=== PATIENT | female | born 1995 | race Caucasian/White ===

== ENCOUNTER 2017-01-23 06:21 | Inpatient (IN) | payer BC ==
[~2017-01-23] VITALS: Ht 162.6 cm; Wt 65.4 kg
[~2017-01-23 06:21] MED LIST: AZIT-21 PO; BIRTHCONTROL PO; CEFD300C3 PO; FLC1T PO; HYDR200T46 PO; MTX2.5T PO; NAPR-243 PO
[2017-01-23] MEDS ORDERED: SULF-222 PO (06:39)
[2017-01-23] MEDS ORDERED: [UNRECOGNIZED DRUG - CODE] (06:39)
[2017-01-23] MEDS ORDERED: SPIR50TA2 PO (06:39)
[2017-01-23] MEDS ORDERED: METH2.5T PO (06:39)
[2017-01-23] MEDS ORDERED: fentaNYL INJECTION 100 MCG/2 ML AMP IVP ONE (07:00)
[2017-01-23] MEDS ORDERED: NS IV 1000 ML 1,000 ML IV SCH ×3 (07:00→08:45)
[2017-01-23] MEDS ORDERED: cefTRIAXone INJECTION 2,000 MG in NS (IVPB) 50 ML IV ONE (07:00)
[2017-01-23] MEDS ORDERED: ONDANSETRON 4 MG/2 ML (SDV) Z0FRAN IVP ONE (07:00)
[2017-01-23 07:02] LABS: BASOPHILS % (AUTO) 0 % (0-10); EOSINOPHILS % (AUTO) 0 % (0-10); LYMPHOCYTES # (AUTO) 1.4 X 10^3 (1.0-4.0); LYMPHOCYTES % (AUTO) 7 % (12-44); MEAN CORPUSCULAR HEMOGLOBIN 31 PG (25-34); MEAN CORPUSCULAR HGB CONC 34 G/DL (32-36); MEAN CORPUSCULAR VOLUME 93 FL (80-99); MEAN PLATELET VOLUME 9.3 FL (7.4-10.4); MONOCYTES # (AUTO) 0.6 X 10^3 (0.0-1.0); MONOCYTES % (AUTO) 3 % (0-12); NEUTROPHILS # (AUTO) 17.2 X 10^3 (1.8-7.8); NEUTROPHILS % (AUTO) 89 % (42-75); PLATELET COUNT 254 10^3/uL (130-400); RED BLOOD COUNT 4.05 10^6/uL (4.35-5.85); RED CELL DISTRIBUTION WIDTH 12.8 % (10.0-14.5); WHITE BLOOD COUNT 19.2 10^3/uL (4.3-11.0)
[2017-01-23 07:12] LABS: ALANINE AMINOTRANSFERASE 12 U/L (0-55); ALBUMIN 4.2 G/DL (3.2-4.5); ANION GAP 9 MMOL/L (5-14); ASPARTATE AMINO TRANSFERASE 13 U/L (5-34); BILIRUBIN,TOTAL 0.4 MG/DL (0.1-1.0); BLOOD UREA NITROGEN 12 MG/DL (7-18); BUN/CREATININE RATIO 11; CALCIUM 9.1 MG/DL (8.5-10.1); CARBON DIOXIDE 27 MMOL/L (21-32); CHLORIDE 101 MMOL/L (98-107); CREATININE SERUM 1.06 MG/DL (0.60-1.30); GFR ESTIMATED > 60; GLUCOSE 131 MG/DL (70-105); POTASSIUM 3.6 MMOL/L (3.6-5.0); SODIUM 137 MMOL/L (135-145); TOTAL PROTEIN 7.3 G/DL (6.4-8.2)
[2017-01-23] MEDS ORDERED: cefTRIAXone 1 GM (ROCEPHIN) VIAL ONE (07:18)
[2017-01-23] MEDS ORDERED: NS (IVPB) 100 ML ONE (07:19)
--- NOTE | 2017-01-23 07:29 | ED Abdominal Pain ---
General Chief Complaint: -Female Stated Complaint: UTI SYMPTOMS CHILLS Nursing Triage Note: patient reports having UTI symptoms x 4 days, patient reports started on bactrim 2 days ago without improvement. patient is having fever, chills, back pain and r sided pain. Sepsis Screen: Possible Sepsis Risk Source of Information: Patient Exam Limitations: No Limitations History of Present Illness Time Seen By Provider: 07:25 Initial Comments 21-year-old white female presents with right flank pain with proceeding symptoms of a urinary tract infection for the past 4 days. Patient is now having fever and chills despite implying Bactrim for her UTI. The patient is also complaining of right sided chest pain with deep breaths and a productive cough. 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 The patient is on methotrexate for her arthritis of the knee from her terminologist at .. She employs control pills. She is currently on her period and denies possibly . Allergies and Home Medications Allergies Uncoded Allergies: SEASONAL (Allergy, Mild, 08/30/13) Home Medications Blood Sugar Diagnostic 1 Each Strip, #300 (Reported) Folic Acid 1 Mg Tablet, 1 MG PO DAILY, (Reported) Methotrexate Sodium 2.5 Mg Tablet, #32 (Reported) Spironolactone 50 Mg Tablet, #90 (Reported) Sulfamethoxazole/Trimethoprim 1 Each Tablet, #10 (Reported) Review of Systems Constitutional: see HPI, chills, fever, malaise EENTM: No Blurred Vision Respiratory: Cough, Other (right-sided chest pain with deep breath) Cardiovascular: See HPI, Denies Edema, Denies Palpitations Genitourinary: Flank Pain (right-sided) Musculoskeletal: see HPI, back pain Skin: No change in color, No rash Psychiatric/Neurological: Denies Anxiety, Denies Depressed Endocrine: No Symptoms Reported Hematologic/Lymphatic: Other (patient is on methotrexate for her degenerative arthritis.) Past Ltbnbhz-Yzwhop-Ijpltg Hx Patient Social History Alcohol Use: Denies Use Recreational Drug Use: No Smoking Status: Never a Smoker Recent Foreign Travel: No Contact w/Someone Who Travel: No Recent Infectious Disease Expo: No Seasonal Allergies Seasonal Allergies: Yes Surgeries HX Surgeries: Yes Surgeries: Orthopedic Respiratory Hx Respiratory Disorders: No Cardiovascular Hx Cardiac Disorders: No Neurological Hx Neurological Disorders: No Reproductive System Hx Reproductive Disorders: No Sexually Transmitted Disease: No Genitourinary Hx Genitourinary Disorders: No Gastrointestinal Hx Gastrointestinal Disorders: No Musculoskeletal Hx Musculoskeletal Disorders: Yes Musculoskeletal Disorders: Arthritis Endocrine Hx Endocrine Disorders: No HEENT HX ENT Disorders: No Cancer Hx Cancer: No Psychosocial Hx Psychiatric Problems: No Integumentary HX Skin/Integumentary Disorder: No Blood Transfusions Hx Blood Disorders: No Adverse Reaction to a Blood Tr: No Reviewed Nursing Assessment Reviewed/Agree w Nursing PMH: Yes Family Medical History Significant Family History: No Pertinent Family Hx Physical Exam Vital Signs VS - Last 72 Hours, by Label 01/23/17 01/23/17 06:29 07:31 Temp 104.2 104.2 Pulse 130 Resp 20 B/P (MAP) Pulse Ox 99 O2 Delivery Room Air Capillary Refill : Less Than 3 Seconds General Appearance: mild distress HEENT: normal ENT inspection Neck: non-tender, full range of motion, supple Respiratory: lungs clear, normal breath sounds, no respiratory distress Cardiovascular: normal peripheral pulses, regular rate, rhythm, no JVD, no murmur Gastrointestinal: normal bowel sounds, non tender Genital/Rectal: other (right-sided flank tenderness) Extremities: normal range of motion, non-tender, normal inspection Back: normal inspection, CVA tenderness (R) Neurologic/Psychiatric: global analytics head II-XII nml as tested, no motor/sensory deficits, alert, normal mood/affect, oriented x 3 Skin: normal color, warm/dry Focused Exam Lactic Acid Level Laboratory Tests Test 01/23/17 07:00 Lactic Acid Level 1.53 MMOL/L (0.50-2.00) Progress/Results/Core Measures Results/Orders Lab Results Laboratory Tests Test 01/23/17 06:40 01/23/17 07:00 01/23/17 09:40 Range/Units White Blood Count 19.2 H 4.3-11.0 10^3/uL Red Blood Count 4.05 L 4.35-5.85 10^6/uL Hemoglobin 12.6 11.5-16.0 G/DL Hematocrit 38 35-52 % Mean Corpuscular Volume 93 80-99 FL Mean Corpuscular Hemoglobin 31 25-34 PG Mean Corpuscular Hemoglobin Concent 34 32-36 G/DL Red Cell Distribution Width 12.8 10.0-14.5 % Platelet Count 254 130-400 10^3/uL Mean Platelet Volume 9.3 7.4-10.4 FL Neutrophils (%) (Auto) 89 H 42-75 % Lymphocytes (%) (Auto) 7 L 12-44 % Monocytes (%) (Auto) 3 0-12 % Eosinophils (%) (Auto) 0 0-10 % Basophils (%) (Auto) 0 0-10 % Neutrophils # (Auto) 17.2 H 1.8-7.8 X 10^3 Lymphocytes # (Auto) 1.4 1.0-4.0 X 10^3 Monocytes # (Auto) 0.6 0.0-1.0 X 10^3 Eosinophils # (Auto) 0.0 0.0-0.3 10^3/uL Basophils # (Auto) 0.0 0.0-0.1 10^3/uL Neutrophils % (Manual) 66 % Lymphocytes % (Manual) 8 % Monocytes % (Manual) 2 % Eosinophils % (Manual) 0 % Basophils % (Manual) 0 % Band Neutrophils 24 % Blood Morphology Comment NORMAL Sodium Level 137 135-145 MMOL/L Potassium Level 3.6 3.6-5.0 MMOL/L Chloride Level 101 98-107 MMOL/L Carbon Dioxide Level 27 21-32 MMOL/L Anion Gap 9 5-14 MMOL/L Blood Urea Nitrogen 12 7-18 MG/DL Creatinine 1.06 0.60-1.30 MG/DL Estimat Glomerular Filtration Rate > 60 BUN/Creatinine Ratio 11 Glucose Level 131 H 70-105 MG/DL Calcium Level 9.1 8.5-10.1 MG/DL Total Bilirubin 0.4 0.1-1.0 MG/DL Aspartate Amino Transf (AST/SGOT) 13 5-34 U/L Alanine Aminotransferase (ALT/SGPT) 12 0-55 U/L Alkaline Phosphatase 72 40-136 U/L Total Protein 7.3 6.4-8.2 G/DL Albumin 4.2 3.2-4.5 G/DL Lactic Acid Level 1.53 0.50-2.00 MMOL/L Urine Color YELLOW Urine Clarity CLEAR Urine pH 6 5-9 Urine Specific [place] 1.015 L 1.016-1.022 Urine Protein 2+ H NEGATIVE Urine Glucose (UA) NEGATIVE NEGATIVE Urine Ketones NEGATIVE NEGATIVE Urine Nitrite NEGATIVE NEGATIVE Urine Bilirubin NEGATIVE NEGATIVE Urine Urobilinogen NORMAL NORMAL MG/DL Urine Leukocyte Esterase 2+ H NEGATIVE Urine RBC (Auto) 4+ H NEGATIVE Urine RBC RARE /HPF Urine WBC 25-50 H /HPF Urine Squamous Epithelial Cells 5-10 /HPF Urine Crystals NONE /LPF Urine Bacteria TRACE /HPF Urine Casts NONE /LPF Urine Mucus NEGATIVE /LPF Urine Culture Indicated YES My Orders Orders - MINERVA LIMON MD Cbc With Automated Diff (01/23/17 06:52) Comprehensive Metabolic Panel (01/23/17 06:52) Blood Culture (01/23/17 06:52) Lactic Acid Analyzer (01/23/17 06:52) Ceftriaxone Injection (Rocephin Injectio (01/23/17 07:00) Fentanyl Injection (Sublimaze Injection (01/23/17 07:00) Ns Iv 1000 Ml (Sodium Chloride 0.9%) (01/23/17 07:00) Ondansetron Injection (Zofran Injectio (01/23/17 07:00) Manual Differential (01/23/17 06:40) Ceftriaxone Injection (Rocephin Injectio (01/23/17 07:18) Ns (Ivpb) (Sodium Chloride 0.9% Ivpb Bag (01/23/17 07:19) Chest 1 View, Ap/Pa Only (01/23/17 07:23) Ibuprofen Tablet (Motrin Tablet) (01/23/17 08:15) Ns Iv 1000 Ml (Sodium Chloride 0.9%) (01/23/17 08:15) Ns Iv 1000 Ml (Sodium Chloride 0.9%) (01/23/17 08:45) Ns Iv 1000 Ml (Sodium Chloride 0.9%) (01/23/17 09:45) Medications Given in ED Current Medications Medications Dose Ordered Sig/[place] Route Start Time Stop Time Status Last Admin Dose Admin Ceftriaxone Sodium 2000 mg/ Sodium Chloride 50 ml @ 100 mls/hr ONCE ONCE IV 01/23/17 07:00 01/23/17 07:29 DC 01/23/17 07:31 100 MLS/HR Fentanyl Citrate 50 mcg ONCE ONCE IVP 01/23/17 07:00 01/23/17 07:01 DC 01/23/17 07:31 50 MCG Ibuprofen 800 mg ONCE ONCE PO 01/23/17 08:15 01/23/17 08:16 DC 01/23/17 08:19 800 MG Ondansetron HCl 4 mg ONCE ONCE IVP 01/23/17 07:00 01/23/17 07:01 DC 01/23/17 07:32 4 MG Sodium Chloride 100 ml @ ud STK-MED ONCE .ROUTE 01/23/17 07:19 01/23/17 07:23 DC 01/23/17 07:34 1,000 MLS/HR Vital Signs/I&O Vital Sign - Last 12Hours 01/23/17 01/23/17 06:29 07:31 Temp 104.2 104.2 Pulse 130 Resp 20 B/P (MAP) Pulse Ox 99 O2 Delivery Room Air Progress Note : Time: 10:15 Progress Note The patient's laboratory evaluation was consistent with a pyelonephritis. Fortunately the patient's serum lactate was within normal limits. Treatment consisted of several liters of IV fluids while in the emergency department. The patient also received 2 g Rocephin IV. I was able to visit with Dr. Blake who was kind enough to admit the patient. Orders were written. Departure Communication Time/Spoke to Admitting Phy: 10:[address] Blake. Impression Impression: Primary Impression: UTI (urinary tract infection) Qualified Codes: N10 - Acute pyelonephritis Disposition: ADMITTED INPATIENT Condition: Improved Decision to Admit Reason: Admit from ER (General) Decision to Admit/Date: January 23, 2017 Time/Decision to Admit Time: 10:19 Departure-Patient Inst. Referrals: NO,LOCAL PHYSICIAN (PCP/Family) Primary Care Physician MINERVA LIMON MD January 23, 2017 07:29
[2017-01-23 07:42] LABS: BAND NEUTROPHILS 24 %; BASOPHILS % (MANUAL) 0 %; EOSINOPHILS % (MANUAL) 0 %; LYMPHOCYTES % (MANUAL) 8 %; NEUTROPHILS % (MANUAL) 66 %
[2017-01-23] MEDS ORDERED: IBUPROFEN 800 MG (MOTRIN) TAB PO ONE (08:15)
[2017-01-23 09:57] LABS: BILIRUBIN,URINE NEGATIVE (NEGATIVE); KETONES,URINE NEGATIVE (NEGATIVE); LEUKOCYTE ESTERASE ,URINE 2+ (NEGATIVE); NITRITE,URINE NEGATIVE (NEGATIVE); PH,URINE 6 (5-9); PROTEIN,URINE 2+ (NEGATIVE); UROBILINOGEN,URINE NORMAL (NORMAL)
[2017-01-23] MEDS: NS IV 1000 ML 1,000 ML IV SCH ×4 (10:00→20:35)
[2017-01-23 10:08] LABS: WBC,URINE 25-50 /HPF
--- NOTE | 2017-01-23 11:21 | Diagnostic Imaging Report ---
EXAMINATION: Portable upright radiograph of the chest. INDICATION: Severe UTI. FINDINGS: The lungs are clear. The heart size is normal. No effusion or pneumothorax. The mediastinum and abad appear unremarkable. IMPRESSION: Unremarkable exam. Dictated by: Dictated on workstation # [id number]
[2017-01-23 12:00] VITALS: BP 97/65
[2017-01-23] MEDS ORDERED: FOLI1TAB24 PO (13:10)
[2017-01-23] MEDS ORDERED: IBUP-2055 PO (13:10)
[2017-01-23] MEDS ORDERED: NORE0.357 PO (13:10)
[2017-01-23] MEDS ORDERED: METR60GE4 TP (13:10)
[2017-01-23] MEDS ORDERED: IBUPROFEN 600 MG (MOTRIN) TAB PO ONE (14:01)
--- NOTE | 2017-01-23 14:02 | History & Physical-Hospitalist ---
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 She reports she has UTIs periodically. She reports that she felt feverish and overall started vomiting and feeling very ill the prompted her to present to the emergency room today was found to have severe leukocytosis of 19,000 and fever of 104.2 and extremely ill. She is very dehydrated she received 3 L of IV fluid in the emergency room with consistent oliguria so she was placed on 2 g of Rocephin IV after cultures were obtained but lactic acid was normal so she was found to be in need for inpatient observation for aggressive IV fluids anti-emetics and IV antibiotics. She will sign the AGAINST MEDICAL ADVICE form to be able to go to graduation ceremony and then return and continue the same orders with IV fluids and antibiotics with IV antibiotics after graduation ceremony. 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) Alcohol Use: Occasionally Uses Recreational Drug Use: No Smoking Status: Never a Smoker Physical Abuse Screen: No Sexual Abuse: No Recent Foreign Travel: No Contact w/other who traveled: No Recent Infectious Disease Expo: No Seasonal Allergies Seasonal Allergies: Yes Surgeries HX Surgeries: Yes Surgeries: Orthopedic Respiratory Hx Respiratory Disorders: No Cardiovascular Hx Cardiovascular Disorders: No Neurological Hx Neurological Disorders: No Reproductive System Hx Reproductive Disorders: No Sexually Transmitted Disease: No HIV/AIDS: No Genitourinary Hx Genitourinary Disorders: Yes Genitourinary Disorders: Bladder Infection, UTI-Chronic Gastrointestinal Hx Gastrointestinal Disorders: No Musculoskeletal Hx Musculoskeletal Disorders: Yes Musculoskeletal Disorders: Arthritis Endocrine Hx Endocrine Disorders: No HEENT HX ENT Disorders: No Cancer Hx Cancer: No Psychosocial Hx Psychiatric Problems: No Integumentary HX Skin/Integumentary Disorder: No Blood Transfusions Hx Blood Disorders: No Adverse Reaction to a Blood Tr: No Reviewed Nursing Assessment Reviewed/Agree w Nursing PMH: Yes Family Medical History Significant Family History: No Pertinent Family Hx Family Hx: Patient reports no known family medical history. Review of Systems Constitutional: chills, fever, malaise, weakness EENTM: no symptoms reported Respiratory: no symptoms reported Cardiovascular: no symptoms reported Gastrointestinal: no symptoms reported Genitourinary: decreased output, dysuria, frequency, hematuria, hesitancy, nocturia, pain Musculoskeletal: back pain Skin: no symptoms reported Psychiatric/Neurological: No Symptoms Reported All Other Systems Reviewed Negative Unless Noted: Yes Physical Exam Physical Exam Vital Signs Vital Sign - Last 12Hours 01/23/17 01/23/17 06:29 12:00 Temp 104.2 Pulse 130 Resp 20 B/P (MAP) 97/65 Pulse Ox 99 O2 Delivery Room Air Capillary Refill : Less Than 3 Seconds General Appearance: No Apparent Distress, WD/WN Eyes: Bilateral Eye Normal Inspection, Bilateral Eye PERRL HEENT: PERRL/EOMI, Normal ENT Inspection, Pharynx Normal Neck: Full Range of Motion, Normal Inspection, Non Tender, Supple, Carotid Bruit Respiratory: Chest Non Tender, Lungs Clear, Normal Breath Sounds, No Accessory Muscle Use, No Respiratory Distress Cardiovascular: Regular Rate, Rhythm, No Edema, No Gallop, No JVD, No Murmur, Normal Peripheral Pulses Gastrointestinal: Normal Bowel Sounds, No Organomegaly, No Pulsatile Mass, Non Tender, Soft Back: Normal Inspection, No CVA Tenderness, No Vertebral Tenderness Extremity: Normal Capillary Refill, Normal Inspection, Normal Range of Motion, Non Tender, No Calf Tenderness, No Pedal Edema Neurologic/Psychiatric: Alert, Oriented x3, No Motor/Sensory Deficits, Normal Mood/Affect Skin: Normal Color, Warm/Dry Lymphatic: No Adenopathy Results Results/Procedures Lab Laboratory Tests 01/23/17 06:40 Assessment/Plan Admission Diagnosis assessment: Acute pyelonephritis with severe dehydration and leukocytosis with fever of 104.2 Recurrent UTIs Failure on Bactrim double strength twice daily given on Thursday at [facility] urgent care Assessment and Plan Plan: Broad-spectrum antibiotic with Rocephin Aggressive IV fluids Anti-emetics Ibuprofen and Tylenol for fever Zofran Monitor closely Check labs in a.m. Clinical Quality Measures DVT/VTE Risk/Contraindication: Risk Factor Score Per Nursin RFS Level Per Nursing on Admit: 1=Low/No VTE PPX NURY BLAKE DO January 23, 2017 14:02
[2017-01-23] MEDS: ONDANSETRON 4 MG/2 ML (SDV) Z0FRAN IVP PRN ×2 (14:06→20:12)
[2017-01-23] MEDS: IBUPROFEN 600 MG (MOTRIN) TAB PO SCH (14:07)
[2017-01-23 19:40] VITALS: BP 105/59
[2017-01-23] MEDS: ACETAMINOPHEN 500 MG TAB (TYLENOL) PO PRN (20:12)
[2017-01-24] VITALS: BP 92/50
[2017-01-24] MEDS: IBUPROFEN 600 MG (MOTRIN) TAB PO SCH ×5 (00:48→23:18)
[2017-01-24 04:00] VITALS: BP 89/55
[2017-01-24 05:11] LABS: BASOPHILS % (AUTO) 0 % (0-10); EOSINOPHILS % (AUTO) 0 % (0-10); LYMPHOCYTES # (AUTO) 1.2 X 10^3 (1.0-4.0); LYMPHOCYTES % (AUTO) 6 % (12-44); MEAN CORPUSCULAR HEMOGLOBIN 31 PG (25-34); MEAN CORPUSCULAR HGB CONC 33 G/DL (32-36); MEAN CORPUSCULAR VOLUME 94 FL (80-99); MEAN PLATELET VOLUME 9.6 FL (7.4-10.4); MONOCYTES # (AUTO) 1.1 X 10^3 (0.0-1.0); MONOCYTES % (AUTO) 6 % (0-12); NEUTROPHILS # (AUTO) 17.8 X 10^3 (1.8-7.8); NEUTROPHILS % (AUTO) 88 % (42-75); PLATELET COUNT 189 10^3/uL (130-400); RED BLOOD COUNT 3.13 10^6/uL (4.35-5.85); RED CELL DISTRIBUTION WIDTH 13.1 % (10.0-14.5); WHITE BLOOD COUNT 20.2 10^3/uL (4.3-11.0)
[2017-01-24] MEDS: NS IV 1000 ML 1,000 ML IV SCH ×3 (05:27→20:46)
[2017-01-24 05:35] LABS: ALANINE AMINOTRANSFERASE 12 U/L (0-55); ALBUMIN 2.8 G/DL (3.2-4.5); ANION GAP 7 MMOL/L (5-14); ASPARTATE AMINO TRANSFERASE 13 U/L (5-34); BILIRUBIN,TOTAL 0.3 MG/DL (0.1-1.0); BLOOD UREA NITROGEN 9 MG/DL (7-18); BUN/CREATININE RATIO 11; CARBON DIOXIDE 21 MMOL/L (21-32); CHLORIDE 110 MMOL/L (98-107); CREATININE SERUM 0.84 MG/DL (0.60-1.30); GFR ESTIMATED > 60; GLUCOSE 114 MG/DL (70-105); POTASSIUM 4.1 MMOL/L (3.6-5.0); SODIUM 138 MMOL/L (135-145); TOTAL PROTEIN 5.2 G/DL (6.4-8.2)
[2017-01-24] MEDS: fentaNYL INJECTION 100 MCG/2 ML AMP IVP PRN (06:10)
[2017-01-24 08:00] VITALS: BP 97/55
[2017-01-24] MEDS: cefTRIAXone 1 GM/NS 50 ML IVPB IV SCH ×2 (08:33)
[2017-01-24] MEDS: ACETAMINOPHEN 500 MG TAB (TYLENOL) PO PRN (08:34)
[2017-01-24 09:44] LABS: BILIRUBIN,URINE NEGATIVE (NEGATIVE); KETONES,URINE NEGATIVE (NEGATIVE); LEUKOCYTE ESTERASE ,URINE 1+ (NEGATIVE); NITRITE,URINE NEGATIVE (NEGATIVE); PH,URINE 6 (5-9); PROTEIN,URINE 2+ (NEGATIVE); UROBILINOGEN,URINE 1 MG/DL (NORMAL)
--- NOTE | 2017-01-24 10:08 | Progress Note-Hospitalist ---
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 She reports she has UTIs periodically. She reports that she felt feverish and overall started vomiting and feeling very ill the prompted her to present to the emergency room today was found to have severe leukocytosis of 19,000 and fever of 104.2 and extremely ill. She is very dehydrated she received 3 L of IV fluid in the emergency room with consistent oliguria so she was placed on 2 g of Rocephin IV after cultures were obtained but lactic acid was normal so she was found to be in need for inpatient observation for aggressive IV fluids anti-emetics and IV antibiotics. She will sign the AGAINST MEDICAL ADVICE form to be able to go to graduation ceremony and then return and continue the same orders with IV fluids and antibiotics with IV antibiotics after graduation ceremony. Date Seen 01/24/17 Subjective/Events-last exam patient course continued flank pain. This morning around 7 she did have Reiger' s but currently feeling better. She denies shortness of breath and denies dysuria. Objective Exam Vital Signs Vital Sign - Last 12Hours 01/23/17 01/23/17 06:29 12:00 Temp 104.2 Pulse 130 Resp 20 B/P (MAP) 97/65 Pulse Ox 99 O2 Delivery Room Air Capillary Refill : Less Than 3 Seconds General Appearance: No Apparent Distress Respiratory: Chest Non Tender, Lungs Clear, Normal Breath Sounds, No Accessory Muscle Use, No Respiratory Distress Cardiovascular: Regular Rate, Rhythm, No Edema, No Gallop, No JVD, No Murmur, Normal Peripheral Pulses Gastrointestinal: Normal Bowel Sounds, No Organomegaly, No Pulsatile Mass, Non Tender, Soft, Other (right flank pain to palpation.) Results/Procedures Lab Laboratory Tests 01/24/17 04:44 Assessment/Plan Assessment and Plan Assess & Plan/Chief Complaint 1. Right sided pyelonephritis for which blood cultures are positive for Escherichia coli. Patient qualifies for sepsis not severe. We'll continue IV Rocephin and IV fluids awaiting sensitivity report. MINERVA AMAYA MD January 24, 2017 10:08
[2017-01-24 12:00] VITALS: BP 87/52
[2017-01-24 16:15] VITALS: BP 84/45
[2017-01-24 20:17] VITALS: BP 115/55
[2017-01-25] VITALS: BP 107/61
[2017-01-25] MEDS: ACETAMINOPHEN 500 MG TAB (TYLENOL) PO PRN ×2 (00:25→15:48)
[2017-01-25] MEDS: fentaNYL INJECTION 100 MCG/2 ML AMP IVP PRN (00:51)
[2017-01-25 04:00] VITALS: BP 95/55
[2017-01-25] MEDS: NS IV 1000 ML 1,000 ML IV SCH (04:33)
[2017-01-25] MEDS: IBUPROFEN 600 MG (MOTRIN) TAB PO SCH (05:12)
[2017-01-25] MEDS: cefTRIAXone 1 GM/NS 50 ML IVPB IV SCH ×2 (08:00)
[2017-01-25 08:03] LABS: MEAN PLATELET VOLUME 9.9 FL (7.4-10.4); RED BLOOD COUNT 3.07 10^6/uL (4.35-5.85); RED CELL DISTRIBUTION WIDTH 13.2 % (10.0-14.5); WHITE BLOOD COUNT 18.9 10^3/uL (4.3-11.0)
[2017-01-25 08:19] LABS: ANION GAP 8 MMOL/L (5-14); BLOOD UREA NITROGEN 9 MG/DL (7-18); BUN/CREATININE RATIO 12; CARBON DIOXIDE 19 MMOL/L (21-32); CHLORIDE 113 MMOL/L (98-107); CREATININE SERUM 0.74 MG/DL (0.60-1.30); GFR ESTIMATED > 60; GLUCOSE 84 MG/DL (70-105); POTASSIUM 3.2 MMOL/L (3.6-5.0); SODIUM 140 MMOL/L (135-145)
[2017-01-25 08:37] VITALS: BP 104/55
--- NOTE | 2017-01-25 08:43 | Progress Note-Hospitalist ---
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 She reports she has UTIs periodically. She reports that she felt feverish and overall started vomiting and feeling very ill the prompted her to present to the emergency room today was found to have severe leukocytosis of 19,000 and fever of 104.2 and extremely ill. She is very dehydrated she received 3 L of IV fluid in the emergency room with consistent oliguria so she was placed on 2 g of Rocephin IV after cultures were obtained but lactic acid was normal so she was found to be in need for inpatient observation for aggressive IV fluids anti-emetics and IV antibiotics. She will sign the AGAINST MEDICAL ADVICE form to be able to go to graduation ceremony and then return and continue the same orders with IV fluids and antibiotics with IV antibiotics after graduation ceremony. Date Seen 01/25/17 Subjective/Events-last exam patient was able to sleep last night. She reports decreased flank pain but does note some shortness of breath with activity not at rest. She denies chest pain or cough. She does report feeling puffy. MAXIMUM TEMPERATURE 101.8 she did have mild Reiger's last night with fever Objective Exam Vital Signs Vital Sign - Last 12Hours 01/23/17 01/23/17 06:29 12:00 Temp 104.2 Pulse 130 Resp 20 B/P (MAP) 97/65 Pulse Ox 99 O2 Delivery Room Air Capillary Refill : Less Than 3 Seconds General Appearance: No Apparent Distress, WD/WN Respiratory: Chest Non Tender, Lungs Clear, Normal Breath Sounds, No Accessory Muscle Use, No Respiratory Distress Cardiovascular: Regular Rate, Rhythm, No Edema, No Gallop, No JVD, No Murmur, Normal Peripheral Pulses Gastrointestinal: Normal Bowel Sounds, No Organomegaly, No Pulsatile Mass, Non Tender, Soft Results/Procedures Lab Laboratory Tests 01/25/17 07:48 Assessment/Plan Assessment and Plan Assess & Plan/Chief Complaint 1. Right sided pyelonephritis for which blood cultures are positive for Escherichia coli resistant to Bactrim but sensitive to Rocephin. Temperatures are moderating and blood pressure is coming up. The patient's by mouth added intake has been adequate we will DC IV fluids and change ibuprofen to when necessary status. 2. Mild hypokalemia should moderate off of IV fluids will repeat basic metabolic panel and CBC in the morning. Possible discharge next 24-48 hours if improvement continues and the patient becomes afebrile without Reiger's MINERVA AMAYA MD January 25, 2017 08:43
[2017-01-25] MEDS ORDERED: IBUPROFEN 600 MG (MOTRIN) TAB PO PRN (08:45)
[2017-01-25 12:18] VITALS: BP 111/57
[2017-01-25 16:20] VITALS: BP 122/61
[2017-01-25 20:00] VITALS: BP 116/66
[2017-01-26] VITALS: BP 120/75
[2017-01-26] MEDS: ACETAMINOPHEN 500 MG TAB (TYLENOL) PO PRN (03:31)
[2017-01-26 03:40] VITALS: BP 129/81
[2017-01-26 05:51] LABS: BASOPHILS % (AUTO) 0 % (0-10); EOSINOPHILS # (AUTO) 0.1 10^3/uL (0.0-0.3); EOSINOPHILS % (AUTO) 1 % (0-10); LYMPHOCYTES # (AUTO) 1.5 X 10^3 (1.0-4.0); LYMPHOCYTES % (AUTO) 12 % (12-44); MEAN CORPUSCULAR HEMOGLOBIN 31 PG (25-34); MEAN CORPUSCULAR HGB CONC 33 G/DL (32-36); MEAN CORPUSCULAR VOLUME 92 FL (80-99); MEAN PLATELET VOLUME 9.9 FL (7.4-10.4); MONOCYTES # (AUTO) 1.1 X 10^3 (0.0-1.0); MONOCYTES % (AUTO) 9 % (0-12); NEUTROPHILS # (AUTO) 10.5 X 10^3 (1.8-7.8); NEUTROPHILS % (AUTO) 79 % (42-75); PLATELET COUNT 275 10^3/uL (130-400); RED BLOOD COUNT 3.31 10^6/uL (4.35-5.85); RED CELL DISTRIBUTION WIDTH 12.9 % (10.0-14.5); WHITE BLOOD COUNT 13.3 10^3/uL (4.3-11.0)
[2017-01-26 06:05] LABS: ANION GAP 10 MMOL/L (5-14); BLOOD UREA NITROGEN 9 MG/DL (7-18); BUN/CREATININE RATIO 12; CALCIUM 8.4 MG/DL (8.5-10.1); CARBON DIOXIDE 20 MMOL/L (21-32); CHLORIDE 109 MMOL/L (98-107); CREATININE SERUM 0.77 MG/DL (0.60-1.30); GFR ESTIMATED > 60; GLUCOSE 105 MG/DL (70-105); SODIUM 139 MMOL/L (135-145)
[2017-01-26 08:03] VITALS: BP 122/71
[2017-01-26] MEDS: cefTRIAXone 1 GM/NS 50 ML IVPB IV SCH ×2 (08:43)
[2017-01-26] MEDS ORDERED: HYDR-3729 PO (09:00)
[2017-01-26] MEDS ORDERED: CEFD300C3 PO (09:00)
[2017-01-26] MEDS ORDERED: ONDA8TAB9 PO (09:00)
[2017-01-26] MEDS ORDERED: KCL 20 MEQ TAB (K-DUR) PO SCH (09:00)
--- NOTE | 2017-01-26 09:01 | Discharge Summary-Hospitalist ---
Diagnosis/Chief Complaint Date of Admission January 23, 2017 at 11:34 Date of Discharge Discharge Date: January 26, 2017 Admission Diagnosis assessment: Acute pyelonephritis with severe dehydration and leukocytosis with fever of 104.2 Recurrent UTIs Failure on Bactrim double strength twice daily given on Thursday at [facility] urgent care Discharge Diagnosis assessment: Acute pyelonephritis with severe dehydration and leukocytosis with fever of 104.2 Recurrent UTIs Failure on Bactrim double strength twice daily given on Thursday at [facility] Immunosuppressed on MTX for arthritis Reason Hospital Visit/Course CC: Fever with difficulty urinating HPI: This is a 21-year-old white female 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 She reports she has UTIs periodically. She reports that she felt feverish and overall started vomiting and feeling very ill the prompted her to present to the emergency room today was found to have severe leukocytosis of 19,000 and fever of 104.2 and extremely ill. She is very dehydrated she received 3 L of IV fluid in the emergency room with consistent oliguria so she was placed on 2 g of Rocephin IV after cultures were obtained but lactic acid was normal so she was found to be in need for inpatient observation for aggressive IV fluids anti-emetics and IV antibiotics. She will sign the AGAINST MEDICAL ADVICE form to be able to go to graduation ceremony and then return and continue the same orders with IV fluids and antibiotics with IV antibiotics after graduation ceremony. Note from 01/26/17: Patient remains afebrile currently and eating and drinking and denies any nausea or vomiting Ready for discharge Noted laboratory results No fever, pleasant, improved, oriented 3 and pleasant Regular rate and rhythm, clear to auscultation bilaterally No edema Hospital course: Patient had a lengthy hospital course due to acute pyelonephritis with fever of 104.2. Leukocytosis remained but improved to the hospital stay and improved on broad-spectrum Rocephin due to fact that Escherichia coli likely was resistant to the Bactrim she was placed on his outpatient. Methotrexate was held due to immunosuppression and improved enough to be discharged with close follow-up and continue 6 days of Omnicef therapy and will follow-up with her primary care provider in [place] in one week. Discharge Summary Discharge Physical Examination Allergies: Uncoded Allergies: SEASONAL (Allergy, Mild, 08/30/13) Vitals & I&Os Vital Signs Date Time Temp Pulse Resp B/P (MAP) Pulse Ox O2 Delivery O2 Flow Rate FiO2 01/26/17 08:03 98.8 83 16 122/71 91 01/23/17 06:29 Room Air Hospital Course Labs (last 24 hrs) Laboratory Tests 01/26/17 05:11: White Blood Count 13.3H, Red Blood Count 3.31L, Hemoglobin 10.1L, Hematocrit 30L , Mean Corpuscular Volume 92, Mean Corpuscular Hemoglobin 31, Mean Corpuscular Hemoglobin Concent 33, Red Cell Distribution Width 12.9, Platelet Count 275, Mean Platelet Volume 9.9, Neutrophils (%) (Auto) 79H, Lymphocytes (%) (Auto) 12 , Monocytes (%) (Auto) 9, Eosinophils (%) (Auto) 1, Basophils (%) (Auto) 0, Neutrophils # (Auto) 10.5H, Lymphocytes # (Auto) 1.5, Monocytes # (Auto) 1.1H, Eosinophils # (Auto) 0.1, Basophils # (Auto) 0.0, Sodium Level 139, Potassium Level 3.0L, Chloride Level 109H, Carbon Dioxide Level 20L, Anion Gap 10, Blood Urea Nitrogen 9, Creatinine 0.77, Estimat Glomerular Filtration Rate > 60, BUN/ Creatinine Ratio 12, Glucose Level 105, Calcium Level 8.4L Microbiology 01/23/17 Blood Culture - Preliminary, Resulted No growth 01/24/17 Urine Culture - Final, Complete NO GROWTH Pending Labs Laboratory Tests 01/26/17 05:11: White Blood Count 13.3, Red Blood Count 3.31, Hemoglobin 10.1, Hematocrit 30, Mean Corpuscular Volume 92, Mean Corpuscular Hemoglobin 31, Mean Corpuscular Hemoglobin Concent 33, Red Cell Distribution Width 12.9, Platelet Count 275, Mean Platelet Volume 9.9, Neutrophils (%) (Auto) 79, Lymphocytes (%) (Auto) 12, Monocytes (%) (Auto) 9, Eosinophils (%) (Auto) 1, Basophils (%) (Auto) 0, Neutrophils # (Auto) 10.5, Lymphocytes # (Auto) 1.5, Monocytes # (Auto) 1.1, Eosinophils # (Auto) 0.1, Basophils # (Auto) 0.0, Sodium Level 139, Potassium Level 3.0, Chloride Level 109, Carbon Dioxide Level 20, Anion Gap 10, Blood Urea Nitrogen 9, Creatinine 0.77, Estimat Glomerular Filtration Rate > 60, BUN/ Creatinine Ratio 12, Glucose Level 105, Calcium Level 8.4 Discharge Home Medications: Active Scripts Active Zofran Odt (Ondansetron) 8 Mg Tab.rapdis 8 Mg PO Q6H PRN Lortab 5-325 mg Tablet (Hydrocodone/Acetaminophen) 1 Each Tablet 1 Each PO Q6H Cefdinir 300 Mg Capsule 300 Mg PO BID Reported Ibuprofen 200 Mg Tablet 600 Mg PO BID PRN TAKES 3 (200 MG0 TABLETS Folic Acid 1 Mg Tablet 1 Mg PO DAILY Jolivette (Norethindrone) 0.35 Mg Tablet 1 Tab PO HS Metronidazole 60 Gm Gel..gram. TP DAILY Methotrexate (Methotrexate Sodium) 2.5 Mg Tablet 20 Mg PO WEEK TAKES ON SUNDAYS Sulfamethoxazole-Tmp Ds Tablet (Sulfamethoxazole/Trimethoprim) 1 Each Tablet 1 Tab PO BID Spironolactone 50 Mg Tablet 75 Mg PO DAILY TAKES 1 & 1/2 OF A (50 MG) TABLET Instructions to patient/family Please see electonic discharge instructions given to patient. Clinical Quality Measures DVT/VTE Risk/Contraindication: Risk Factor Score Per Nursin RFS Level Per Nursing on Admit: 1=Low/No VTE PPX HARVINDER RADFORD DO January 26, 2017 09:01
[2017-01-26 11:15] VITALS: BP 122/71
== END 2017-01-26 11:15 | disposition home or self-care (01) | DRG 690 ==
LOC: EDUNIT# 06:21 → ER 06:23 → 4TH 11:34
PROVIDERS: ADMIT Internal Medicine; ATTEND Internal Medicine
DX: N10 Acute pyelonephritis (principal); B96.20 Unspecified Escherichia coli [E. coli] as the cause of diseases classified elsewhere; E86.0 Dehydration; E87.6 Hypokalemia; M17.0 Bilateral primary osteoarthritis of knee
CPT/HCPCS: 36415; 71010; 80048; 80053; 81000; 83605; 84703; 85007; 85025; 85027; 87040; 87077; 87088; 87186; 96361; 96367; 96375; 99284